=== PATIENT | female | born 1950 | race Two or more races ===

== ENCOUNTER 2021-02-26 10:45 | Observation (INO) | payer OTHER ==
[~2021-02-26] VITALS: Ht 157.5 cm; Wt 54.4 kg
[2021-02-26 12:09] LABS: BASOPHILS % 0.3 % (0.0-1.0); EOSINOPHILS # (AUTO) 0.1 (0.0-0.4); EOSINOPHILS % 0.3 % (0.0-6.0); LYMPHOCYTES % 18.8 % (18.0-39.1); MEAN CORPUSCULAR HEMOGLOBIN 26.3 pg (28-32); MEAN CORPUSCULAR HGB CONC 30.4 g/dL (31-35); MEAN CORPUSCULAR VOLUME 86.5 fL (81-99); MONOCYTES # (AUTO) 0.5 (0.2-0.8); MONOCYTES % 3.4 % (4.4-11.3); NEUTROPHILS # (AUTO) 11.9 (2.1-6.9); NEUTROPHILS % 75.6 % (38.7-80.0); PLATELET COUNT 647 x10e3/uL (140-360); RED BLOOD COUNT 2.51 x10e6/uL (3.6-5.1)
[2021-02-26 12:13] LABS: HEMATOCRIT 21.7 % (34.2-44.1); HEMOGLOBIN 6.6 g/dL (12.0-16.0)
[2021-02-26] MEDS ORDERED: ONDANSETRON HCL INJ 2MG/ML 2ML 2 MG/ML VIAL IV PRN (12:30)
[2021-02-26 12:31] LABS: ALANINE AMINOTRANSFERASE 12 IU/L (0-55); ALBUMIN/GLOBULIN RATIO 0.4 (0.8-2.0); ALKALINE PHOSPHATASE 89 IU/L (40-150); ANION GAP 11.8 mmol/L (8-16); BLOOD UREA NITROGEN 12 mg/dL (7-26); BUN/CREATININE RATIO 18 (6-25); CALCIUM 9.3 mg/dL (8.4-10.2); CARBON DIOXIDE 19 mmol/L (22-29); CHLORIDE 107 mmol/L (98-107); CREATININE, SERUM 0.65 mg/dL (0.57-1.11); EST GLOMERULAR FILTRATION RATE > 60 ML/MIN (60-); GLUCOSE 142 mg/dL (74-118); POTASSIUM 3.8 mmol/L (3.5-5.1); SODIUM 134 mmol/L (136-145)
[2021-02-26] MEDS ORDERED: SODIUM CHLORIDE 0.9% 250ML 250 ML IV ONE (12:45)
[2021-02-26] MEDS ORDERED: ATIVAN1 MG PO ×2 (12:46)
[2021-02-26] MEDS ORDERED: REMERON15 MG PO (12:46)
[2021-02-26] MEDS ORDERED: DOCUSATE SODIU100 MG PO (12:46)
[2021-02-26] MEDS ORDERED: GABAPENTIN100 MG PO (12:52)
[2021-02-26] MEDS ORDERED: NORVASC5 MG PO (12:52)
[2021-02-26] MEDS ORDERED: SODIUM CHLORIDE1 GM PO (12:52)
[2021-02-26] MEDS ORDERED: ATORVASTATIN CA10 MG PO (12:52)
[2021-02-26] MEDS ORDERED: TRICOR48 MG PO (12:52)
[2021-02-26] MEDS ORDERED: METOPROLOL TART50 MG PO (12:52)
[2021-02-26] MEDS ORDERED: CETIRIZINE HCL10 MG PO (12:52)
[2021-02-26] MEDS ORDERED: VITAMIN B-1100 M1 PO (12:52)
[2021-02-26] MEDS ORDERED: VITAMIN D325 MCG PEG (12:52)
[2021-02-26] MEDS ORDERED: PHOS-NAK PACKE1 EACH PO (12:52)
[2021-02-26] MEDS ORDERED: LISINOPRIL10 MG PO (12:52)
[2021-02-26] MEDS ORDERED: ASPIRIN EC81 MG PO (12:52)
[2021-02-26 13:28] LABS: INR 1.01; PROTHROMBIN TIME 13.9 seconds (11.9-14.5)
[2021-02-26 13:29] LABS: PARTIAL THROMBOPLASTIN TIME 47.3 seconds (23.8-35.5)
[2021-02-26 16:05] VITALS: BP 103/49
[2021-02-26] MEDS ORDERED: SODIUM CHLORIDE 0.9% 250ML 250 ML ONE (17:58)
[2021-02-26 18:01] VITALS: BP 103/49
[2021-02-26 20:33] VITALS: BP 102/54
[2021-02-26 20:50] VITALS: BP 102/54
[2021-02-27 01:59] VITALS: BP 127/61
[2021-02-27 05:26] LABS: BASOPHILS # (AUTO) 0.1 (0.0-0.1); BASOPHILS % 0.4 % (0.0-1.0); EOSINOPHILS # (AUTO) 0.2 (0.0-0.4); EOSINOPHILS % 1.6 % (0.0-6.0); HEMOGLOBIN 9.5 g/dL (12.0-16.0); LYMPHOCYTES # (AUTO) 2.2 (1.0-3.2); LYMPHOCYTES % 16.3 % (18.0-39.1); MEAN CORPUSCULAR HEMOGLOBIN 28.2 pg (28-32); MEAN CORPUSCULAR HGB CONC 32.8 g/dL (31-35); MEAN CORPUSCULAR VOLUME 86.1 fL (81-99); MONOCYTES # (AUTO) 0.8 (0.2-0.8); MONOCYTES % 5.7 % (4.4-11.3); NEUTROPHILS # (AUTO) 9.9 (2.1-6.9); NEUTROPHILS % 74.8 % (38.7-80.0); PLATELET COUNT 526 x10e3/uL (140-360); RED BLOOD COUNT 3.37 x10e6/uL (3.6-5.1); RED CELL DISTRIBUTION WIDTH 15.9 % (11.7-14.4)
[2021-02-27 05:28] VITALS: BP 131/60
[2021-02-27 05:46] LABS: ANION GAP 10.9 mmol/L (8-16); BLOOD UREA NITROGEN 11 mg/dL (7-26); BUN/CREATININE RATIO 21 (6-25); CALCIUM 8.9 mg/dL (8.4-10.2); CARBON DIOXIDE 19 mmol/L (22-29); CHLORIDE 107 mmol/L (98-107); CREATININE, SERUM 0.53 mg/dL (0.57-1.11); EST GLOMERULAR FILTRATION RATE > 60 ML/MIN (60-); GLUCOSE 85 mg/dL (74-118); POTASSIUM 3.9 mmol/L (3.5-5.1); SODIUM 133 mmol/L (136-145)
[2021-02-27 07:11] LABS: CLARITY,URINE CLEAR (CLEAR); COLOR,URINE YELLOW (YELLOW)
[2021-02-27 07:12] LABS: KETONES,URINE NEGATIVE (NEGATIVE); LEUKOCYTE ESTERASE ,URINE NEGATIVE (NEGATIVE); NITRITE,URINE NEGATIVE (NEGATIVE); PROTEIN,URINE DIPSTICK 1+ (NEGATIVE); URINE UROBILINOGEN 0.2 mg/dL (0.2 - 1)
[2021-02-27 07:36] LABS: EPITHELIAL CELLS,URINE RARE /LPF; TRANSITIONAL EPI CELLS,URINE FEW; WBC,URINE (MAN) 0-5 /HPF (0-5)
[2021-02-27 07:38] LABS: BACTERIA,URINE MANY /HPF; RBC,URINE 0-5 /HPF (0-5)
[2021-02-27 08:41] VITALS: BP 126/67
[2021-02-27 08:48] VITALS: BP 126/67
[2021-02-27 11:46] VITALS: BP 116/62
== END 2021-02-27 22:05 ==
LOC: ER 11:20 → ERHOLD 12:36 → MED/SURG3 14:48
DX: D64.9 Anemia, unspecified (principal); W05.0XXA Fall from non-moving wheelchair, initial encounter; Y92.099 Unspecified place in other non-institutional residence as the place of occurrence of the external cause; Z20.822 Contact with and (suspected) exposure to COVID-19; S00.93XA Contusion of unspecified part of head, initial encounter
CPT/HCPCS: 36415 ×2; 70450; 72125; 80048; 80053; 81001; 82550; 85025 ×2; 85610; 85730; 86850; 86900; 86920; 99284; G0378 ×2; J7050; P9016 ×2; U0002

== ENCOUNTER 2021-03-23 13:05 | Emergency (ER) | payer OTHER ==
[~2021-03-23] VITALS: Ht 157.5 cm; Wt 54.4 kg
[~2021-03-23 13:05] MED LIST: ASPIRIN EC81 MG PO; ATIVAN1 MG PO; ATORVASTATIN CA10 MG PO; CETIRIZINE HCL10 MG PO; DOCUSATE SODIU100 MG PO; GABAPENTIN100 MG PO; LISINOPRIL10 MG PO; METOPROLOL TART50 MG PO; NORVASC5 MG PO; PHOS-NAK PACKE1 EACH PO; REMERON15 MG PO; SODIUM CHLORIDE1 GM PO; TRICOR48 MG PO; VITAMIN B-1100 M1 PO; VITAMIN D325 MCG PEG
[2021-03-23] MEDS ORDERED: ACETAMINOPHEN 325 MG TAB PO ONE (15:00)
== END 2021-03-23 16:19 | disposition home or self-care (01) ==
LOC: ER 13:33
DX: S00.83XA Contusion of other part of head, initial encounter (principal); W01.0XXA Fall on same level from slipping, tripping and stumbling without subsequent striking against object, initial encounter; Y93.01 Activity, walking, marching and hiking; Y92.128 Other place in nursing home as the place of occurrence of the external cause; I10 Essential (primary) hypertension; E78.5 Hyperlipidemia, unspecified; F32.9 Major depressive disorder, single episode, unspecified
CPT/HCPCS: 70450; 72125; 99283